=== PATIENT | male | born 1960 | race African-American/Black ===

== ENCOUNTER 2024-03-12 04:41 | Inpatient (IN) | payer MEDICARE ==
[~2024-03-12] VITALS: Ht 188 cm; Wt 81.4 kg
[2024-03-12] VITALS (8 sets, daily range): BP systolic 124–135; BP diastolic 76–113; PULSE 99–108; RESP 18–20; TEMP 97.3–98; O2SAT 93–100
[2024-03-12 04:55] LABS: COVID AG,FIA SOURCE NASAL SWAB
[2024-03-12 05:18] LABS: BASOPHILS % (AUTO) 0.9 % (0.0-2.0); EOSINOPHILS % (AUTO) 0.8 % (1.0-6.0); HEMATOCRIT 42.3 % (41-53); HEMOGLOBIN 13.9 g/dL (13.5-17.5); LYMPHOCYTES # (AUTO) 2.4 K/uL (1.0-4.8); LYMPHOCYTES % (AUTO) 32.3 % (22.0-44.0); MEAN CORPUSCULAR HEMOGLOBIN 27.2 pg (26.0-34.0); MEAN CORPUSCULAR HGB CONC 32.8 G/dL (31.0-37.0); MEAN CORPUSCULAR VOLUME 83 fL (80-100); MONOCYTES # (AUTO) 0.7 K/uL (0.1-1.0); MONOCYTES % (AUTO) 9.9 % (2.0-9.0); NEUTROPHILS # (AUTO) 4.2 K/uL (1.8-7.7); NEUTROPHILS % (AUTO) 56.1 % (40.0-70.0); PLATELET COUNT (AUTO) 208 K/uL (150-450); RED CELL DISTRIBUTION WIDTH 16.7 % (11.5-14.5); WHITE BLOOD COUNT (AUTO) 7.5 K/uL (4.5-11.0)
[2024-03-12 05:23] LABS: INFLUENZA TYPE A NEGATIVE FOR TYPE A (NEGATIVE); INFLUENZA TYPE B NEGATIVE FOR TYPE B (NEGATIVE)
[2024-03-12 05:25] LABS: SARS-COV2 (COVID) ANTIGEN,FIA Negative (Negative)
[2024-03-12 05:33] LABS: ANION GAP 8 mmol/L (8-16); CALCIUM, TOTAL 8.3 mg/dL (8.8-10.5); CARBON DIOXIDE 25 mmol/L (22-29); CHLORIDE 99 mmol/L (98-107); CREATININE 0.96 mg/dL (0.60-1.30); GLOMERULAR FILTR. RATE CALC > 60 mL/min (>60); GLUCOSE,RANDOM 164 mg/dL (70-110); POTASSIUM 3.5 mmol/L (3.5-5.1); SODIUM SERUM 132 mmol/L (136-145); UREA NITROGEN, BLOOD 11 mg/dL (7-18)
[2024-03-12 05:41] LABS: TROPONIN I-HIGH SENSITIVITY 43 ng/L (<76)
[2024-03-12] MEDS: MethylPREDNISolone SOD SUCC 125 MG/2 ML VIAL IVP ONE ×4 (05:41→05:52)
[2024-03-12] MEDS: IPRATROPIUM BROMIDE 0.5 MG/2.5 ML NEB SOLUTION NEB ONE ×4 (05:45→05:51)
[2024-03-12] MEDS: ALBUTEROL SULFATE 2.5 MG/0.5 ML NEB SOLUTION NEB ONE ×4 (05:45→05:52)
[2024-03-12] MEDS: CefTRIAXone 1 GM/DEXTROSE 50 ML IV ONE (06:07)
[2024-03-12] MEDS: AZITHROMYCIN 500 MG/NS 250 ML IV ONE (06:09)
[2024-03-12 06:12] LABS: D-DIMER 0.58 mg/L FEU (0.00-0.50)
[2024-03-12] MEDS: FUROSEMIDE 40 MG/4 ML VIAL IVP ONE (06:24)
[2024-03-12] MEDS: NITROGLYCERIN 2% (1 GM=INCH) OINTMENT PACKET TP ONE (06:24)
[2024-03-12] MEDS ORDERED: IOHEXOL 350 MG/ML 100 ML VIAL ONE (07:24)
[2024-03-12] MEDS: ASPIRIN 81 MG CHEWABLE TABLET PO ONE (07:47)
[2024-03-12 09:31] LABS: APPEARANCE,URINE CLEAR (CLEAR); BILIRUBIN,URINE NEGATIVE (NEGATIVE); COLOR,URINE COLORLESS (YELLOW); GLUCOSE, URINE (UA) NEGATIVE (NEGATIVE); KETONES,URINE NEGATIVE (NEGATIVE); LEUKOCYTE ESTERASE ,URINE NEGATIVE (NEGATIVE); NITRATE,URINE NEGATIVE (NEGATIVE); OCCULT BLOOD,URINE NEGATIVE (NEGATIVE); PROTEIN,URINE NEGATIVE (NEGATIVE); SPECIFIC GRAVITIY, URINE 1.006 (1.003-1.030); UROBILINOGEN,URINE <=1.0 mg/dL (<=1.0)
[2024-03-12] MEDS ORDERED: IPRATROPIUM BROMIDE 0.5 MG/2.5 ML NEB SOLUTION NEB PRN (14:00)
[2024-03-12] MEDS: ALBUTEROL SULFATE 2.5 MG/0.5 ML NEB SOLUTION NEB SCH (15:06)
[2024-03-12] MEDS: IPRATROPIUM BROMIDE 0.5 MG/2.5 ML NEB SOLUTION NEB SCH (15:06)
[2024-03-12] MEDS: BENZONATATE 100 MG CAPSULE PO SCH (15:24)
[2024-03-12 15:49] LABS: TROPONIN I-HIGH SENSITIVITY 31 ng/L (<76)
[2024-03-12] MEDS: MethylPREDNISolone SOD SUCC 125 MG/2 ML VIAL IVP SCH (17:06)
[2024-03-12] MEDS: NITROGLYCERIN 2% (1 GM=INCH) OINTMENT PACKET TP SCH (17:08)
[2024-03-12] MEDS: ALBUTEROL SULFATE 2.5 MG/0.5 ML NEB SOLUTION NEB PRN (19:44)
[2024-03-12 20:13] LABS: TROPONIN I-HIGH SENSITIVITY 28 ng/L (<76)
[2024-03-12] MEDS: CARVEDILOL 6.25 MG TABLET PO SCH (20:46)
[2024-03-12] MEDS: GuaiFENesin SR 600 MG ER TABLET PO SCH (20:46)
[2024-03-12] MEDS ORDERED: FUROSEMIDE 20 MG/2 ML VIAL IVP SCH (21:00)
[2024-03-13] VITALS (13 sets, daily range): BP systolic 106–136; BP diastolic 75–96; PULSE 82–103; RESP 17–22; TEMP 97.3–98.3; O2SAT 95–100
[2024-03-13 02:26] LABS: TROPONIN I-HIGH SENSITIVITY 34 ng/L (<76)
[2024-03-13] MEDS ORDERED: SODIUM CHLORIDE 0.9% 500 ML IV ONE (04:45)
[2024-03-13] MEDS: AZITHROMYCIN 500 MG/NS 250 ML IV SCH (06:07)
[2024-03-13] MEDS: CefTRIAXone 1 GM/DEXTROSE 50 ML IV SCH (06:07)
[2024-03-13 07:26] LABS: BASOPHILS % (AUTO) 0.2 % (0.0-2.0); EOSINOPHILS % (AUTO) 0 % (1.0-6.0); HEMATOCRIT 40.2 % (41-53); HEMOGLOBIN 13.1 g/dL (13.5-17.5); LYMPHOCYTES # (AUTO) 1.7 K/uL (1.0-4.8); MEAN CORPUSCULAR HEMOGLOBIN 27.1 pg (26.0-34.0); MEAN CORPUSCULAR HGB CONC 32.5 G/dL (31.0-37.0); MEAN CORPUSCULAR VOLUME 83 fL (80-100); MONOCYTES # (AUTO) 0.4 K/uL (0.1-1.0); NEUTROPHILS # (AUTO) 11.8 K/uL (1.8-7.7); NEUTROPHILS % (AUTO) 84.8 % (40.0-70.0); PLATELET COUNT (AUTO) 206 K/uL (150-450); RED BLOOD CELL COUNT(AUTO) 4.82 MIL/uL (4.50-5.90); RED CELL DISTRIBUTION WIDTH 16.6 % (11.5-14.5); WHITE BLOOD COUNT (AUTO) 13.9 K/uL (4.5-11.0)
[2024-03-13 07:47] LABS: TROPONIN I-HIGH SENSITIVITY 35 ng/L (<76)
[2024-03-13 07:51] LABS: ALANINE AMINOTRANSFERASE 81 U/L (12-78); ALBUMIN 2.8 g/dL (3.4-5.0); ALKALINE PHOSPHATASE 118 U/L (46-116); ANION GAP 9 mmol/L (8-16); ASPARTATE AMINOTRANSFERASE 66 U/L (15-37); BILIRUBIN,TOTAL 0.9 mg/dL (0.1-1.0); CALCIUM, TOTAL 8.3 mg/dL (8.8-10.5); CARBON DIOXIDE 23 mmol/L (22-29); CHLORIDE 99 mmol/L (98-107); CREATININE 1.12 mg/dL (0.60-1.30); GLOMERULAR FILTR. RATE CALC > 60 mL/min (>60); GLUCOSE,RANDOM 280 mg/dL (70-110); POTASSIUM 5.1 mmol/L (3.5-5.1); SODIUM SERUM 131 mmol/L (136-145); TOTAL PROTEIN, SERUM 6.2 g/dL (6.4-8.2); UREA NITROGEN, BLOOD 23 mg/dL (7-18)
[2024-03-13] MEDS: ASPIRIN 81 MG DR TABLET PO SCH (08:00)
[2024-03-13] MEDS: LOSARTAN POTASSIUM 25 MG TABLET PO SCH (08:00)
[2024-03-13] MEDS: FUROSEMIDE 40 MG/4 ML VIAL IVP SCH (08:01)
[2024-03-13] MEDS ORDERED: LISINOPRIL 5 MG TABLET PO SCH (09:00)
[2024-03-14] VITALS (14 sets, daily range): BP systolic 119–139; BP diastolic 65–95; PULSE 83–98; RESP 18–20; TEMP 97.5–97.8; O2SAT 89–100
[2024-03-14 07:27] LABS: BASOPHILS % (AUTO) 0.1 % (0.0-2.0); EOSINOPHILS % (AUTO) 0 % (1.0-6.0); HEMATOCRIT 38.9 % (41-53); HEMOGLOBIN 12.8 g/dL (13.5-17.5); LYMPHOCYTES % (AUTO) 16.9 % (22.0-44.0); MEAN CORPUSCULAR HEMOGLOBIN 27.5 pg (26.0-34.0); MEAN CORPUSCULAR VOLUME 84 fL (80-100); MONOCYTES # (AUTO) 1.4 K/uL (0.1-1.0); MONOCYTES % (AUTO) 7.6 % (2.0-9.0); NEUTROPHILS # (AUTO) 13.6 K/uL (1.8-7.7); NEUTROPHILS % (AUTO) 75.4 % (40.0-70.0); PLATELET COUNT (AUTO) 217 K/uL (150-450); RED BLOOD CELL COUNT(AUTO) 4.66 MIL/uL (4.50-5.90); RED CELL DISTRIBUTION WIDTH 16.3 % (11.5-14.5)
[2024-03-14 07:31] LABS: HEMOGLOBIN A1C 6.9 % (3.8-5.6)
[2024-03-14 07:46] LABS: ANION GAP 7 mmol/L (8-16); CALCIUM, TOTAL 8.5 mg/dL (8.8-10.5); CARBON DIOXIDE 27 mmol/L (22-29); CHLORIDE 103 mmol/L (98-107); CREATININE 1.11 mg/dL (0.60-1.30); GLOMERULAR FILTR. RATE CALC > 60 mL/min (>60); GLUCOSE,RANDOM 154 mg/dL (70-110); POTASSIUM 4.5 mmol/L (3.5-5.1); SODIUM SERUM 137 mmol/L (136-145); UREA NITROGEN, BLOOD 27 mg/dL (7-18)
[2024-03-14] MEDS: PredniSONE 20 MG TABLET PO SCH (09:03)
[2024-03-14] MEDS ORDERED: BENZOCAINE/MENTHOL LOZENGE PO PRN (12:30)
[2024-03-14] MEDS: EMPAGLIFLOZIN 10 MG TABLET PO SCH (15:23)
[2024-03-14] MEDS: NICOTINE 21 MG/24 HOUR PATCH TD SCH (15:26)
[2024-03-14 16:43] LABS: ABG BASE EXCESS -3.6 mmol/L (-2.0-3.0); ABG CARBOXYHEMOGLOBIN 0.9 % (0.5-1.5); ABG HCO3 22.4 mmol/L (21.0-28.0); ABG METHEMOGLOBIN 0.3 % (0.0-1.5); ABG OXYGEN CONTENT 18.2 mL/dL (15.0-23.0); ABG OXYGEN SATURATION 95.2 % (94.0-98.0); ABG OXYHEMOGLOBIN 94.1 % (94.0-98.0); ABG PCO2 29 mmHg (32.0-48.0); ABG PH 7.465 (7.350-7.450); ABG TOTAL HEMOGLOBIN 13.7 G/dL (13.5-17.5); PO2, ARTERIAL BG 72.8 mmHg (83.0-108.0); SOURCE, BLOOD GAS ARTERIAL; TEMPERATURE, FAHRENHEIT, BG 97.6 FAHREN (96.0-98.6)
[2024-03-14 16:47] LABS: ABG A-A DIFF O2 42.9 mmHg (10-20.0); ALLEN TEST, BLOOD GAS Positive; O2 DEVICE,BLOOD GAS ROOM AIR (ROOM AIR); SITE, BLOOD GAS LFT RADIAL
[2024-03-14 20:50] LABS: GLUCOMETER DEV NAME(LOC) 5N.1D; GLUCOSE,POINT OF CARE 255 MG/DL (70-110)
[2024-03-14] MEDS: FUROSEMIDE 40 MG/4 ML VIAL IVP SCH (21:47)
[2024-03-14] MEDS: MELATONIN 5 MG TABLET PO PRN (21:47)
[2024-03-14 23:54] LABS: MAGNESIUM 2.5 mg/dL (1.80-2.40); POTASSIUM 4.2 mmol/L (3.5-5.1)
[2024-03-15] VITALS (12 sets, daily range): BP systolic 115–130; BP diastolic 59–93; PULSE 77–95; RESP 14–18; TEMP 97.4–98; O2SAT 90–99
[2024-03-15 06:55] LABS: BASOPHILS % (AUTO) 0.1 % (0.0-2.0); EOSINOPHILS % (AUTO) 0.2 % (1.0-6.0); HEMATOCRIT 43.6 % (41-53); HEMOGLOBIN 13.7 g/dL (13.5-17.5); LYMPHOCYTES # (AUTO) 4.1 K/uL (1.0-4.8); LYMPHOCYTES % (AUTO) 29.5 % (22.0-44.0); MEAN CORPUSCULAR HEMOGLOBIN 26.7 pg (26.0-34.0); MEAN CORPUSCULAR HGB CONC 31.4 G/dL (31.0-37.0); MEAN CORPUSCULAR VOLUME 85 fL (80-100); MONOCYTES # (AUTO) 1.4 K/uL (0.1-1.0); MONOCYTES % (AUTO) 10.5 % (2.0-9.0); NEUTROPHILS # (AUTO) 8.2 K/uL (1.8-7.7); NEUTROPHILS % (AUTO) 59.7 % (40.0-70.0); PLATELET COUNT (AUTO) 207 K/uL (150-450); RED BLOOD CELL COUNT(AUTO) 5.11 MIL/uL (4.50-5.90); RED CELL DISTRIBUTION WIDTH 16.7 % (11.5-14.5); WHITE BLOOD COUNT (AUTO) 13.7 K/uL (4.5-11.0)
[2024-03-15 08:51] LABS: GLUCOMETER DEV NAME(LOC) 5S.2D; GLUCOSE,POINT OF CARE 146 MG/DL (70-110)
[2024-03-15] MEDS ORDERED: CARV6 PO (11:19)
[2024-03-15] MEDS ORDERED: IPRA4AER IH (11:19)
[2024-03-15] MEDS ORDERED: FURO40TA6 PO (11:19)
[2024-03-15] MEDS ORDERED: ASPI-1444 PO (11:19)
[2024-03-15] MEDS ORDERED: LOSA-417 PO (11:19)
[2024-03-15] MEDS ORDERED: BENZ-227 PO (11:19)
[2024-03-15] MEDS ORDERED: FLUT1BLS IH (11:19)
[2024-03-15] MEDS ORDERED: PRED5TAB2 PO (11:19)
[2024-03-15] MEDS ORDERED: EMPA10TA3 PO (11:19)
[2024-03-15] MEDS ORDERED: PRED-729 PO (11:19)
== END 2024-03-15 15:40 | disposition home or self-care (01) | DRG 291 ==
LOC: EMS 04:42 → EDH 10:05 → 5S 12:25
PROVIDERS: ADMIT Internal Medicine; ATTEND Internal Medicine
DX: I11.0 Hypertensive heart disease with heart failure (principal); I50.31 Acute diastolic (congestive) heart failure; J96.01 Acute respiratory failure with hypoxia; D72.829 Elevated white blood cell count, unspecified; Z20.822 Contact with and (suspected) exposure to COVID-19; F17.210 Nicotine dependence, cigarettes, uncomplicated; J44.9 Chronic obstructive pulmonary disease, unspecified; R73.9 Hyperglycemia, unspecified; T38.0X5A Adverse effect of glucocorticoids and synthetic analogues, initial encounter; Z79.899 Other long term (current) drug therapy; Y92.89 Other specified places as the place of occurrence of the external cause
CPT/HCPCS: 36600; 71045; 71275; 80048; 80053; 81003; 82805; 82962; 83036; 83605; 83735; 83880; 84132; 84484; 85025; 85379; 85730; 87040; 87804; 93005; 93306; 94640; 99285; J0456; J0696; J1940; J2919; J7040; 36415-L1; 36415-TC; J7613